=== PATIENT | male | born 2000 | race Caucasian/White ===

== ENCOUNTER 2018-01-22 19:03 | Emergency (ER) | payer OTHER ==
[2018-01-22 19:33] VITALS: BP 131/67
[2018-01-22] MEDS ORDERED: Clindamycin CAP* 150 MG PO ONE ×2 (19:45)
--- NOTE | 2018-01-22 19:45 | UC ---
Skin Complaint HPI - HPI Summary HPI Summary: 17-year-old male comes in with chief complaint of a rash around his mouth on his upper lip and his nose. Started about a week ago. Patient had been shaving and he cut his upper lip and the infection started at that point. He's been putting some triple antibiotic on it and it's not really helping. It's spread a little bit more into the opening of the nares on the right and across the upper lip. No fevers or chills no sore throat. - History of Current Complaint Chief Complaint: UCSkin Time Seen by Provider: 01/22/18 19:35 Stated Complaint: SORES FROM SHAVING Pain Intensity: 0 - Allergy/Home Medications Allergies/Adverse Reactions: Allergies Allergy/AdvReac Type Severity Reaction Status Date / Time No Known Allergies Allergy Verified 01/22/18 19:33 Review of Systems All Other Systems Reviewed And Are Negative: Yes Constitutional: Positive: Negative Skin: Positive: Rash Eyes: Positive: Negative ENT: Positive: Negative Respiratory: Positive: Negative Cardiovascular: Positive: Negative Gastrointestinal: Positive: Negative Motor: Positive: Negative Neurovascular: Positive: Negative Musculoskeletal: Positive: Negative Neurological: Positive: Negative Psychological: Positive: Negative Is Patient Immunocompromised?: No PMH/Surg Hx/FS Hx/Imm Hx Previously Healthy: Yes - Surgical History Surgical History: None - Family History Known Family History: Negative: Diabetes - Social History Alcohol Use: Rare Substance Use Type: None Smoking Status (MU): Never Smoked Tobacco Household Exposure Type: Cigarettes Physical Exam Triage Information Reviewed: Yes Appearance: Well-Appearing, No Pain Distress, Well-Nourished Vital Signs: Initial Vital Signs Temp 99.0 F 01/22/18 19:30 Pulse 88 01/22/18 19:30 Resp 18 01/22/18 19:30 BP 131/67 01/22/18 19:30 Pulse Ox 100 01/22/18 19:30 Vital Signs Reviewed: Yes Eye Exam: Normal Eyes: Positive: Conjunctiva Clear ENT: Positive: Pharynx normal. Negative: Pharyngeal erythema, Nasal congestion , Nasal drainage Neck exam: Normal Neck: Positive: Supple Respiratory: Positive: No respiratory distress Musculoskeletal Exam: Normal Musculoskeletal: Positive: Strength Intact, ROM Intact Neurological Exam: Normal Neurological: Positive: Alert, Muscle Tone Normal Psychological Exam: Normal Psychological: Positive: Age Appropriate Behavior Skin: Positive: Other - Patient has several areas under the nose on the upper lip 5 mm 10 mm in size that are erythematous with a yellow crusting on them. Course/Dx - Diagnoses Provider Diagnoses: IMPETIGO Discharge - Sign-Out/Discharge Documenting (check all that apply): Patient Departure All imaging exams completed and their final reports reviewed: No Studies - Discharge Plan Condition: Stable Disposition: HOME Prescriptions: Clindamycin Cap(NF) [Clindamycin Cap 300 mg Cap(NF)] 300 mg PO Q6H #39 cap Mupirocin 1 applic TOPICAL TID #22 gm Patient Education Materials: Impetigo (ED) Referrals: [facility] [Provider Group] Additional Instructions: FOLLOW UP WITH YOUR DOCTOR IF NOT COMPLETELY IMPROVED. GET RECHECKED FOR ANY WORSENING OF YOUR CONDITION OR QUESTIONS OR CONCERNS. - Billing Disposition and Condition Condition: STABLE Disposition: Home
[2018-01-22] MEDS ORDERED: Mupirocin 2% OINT* TUBE TOPICAL ONE (19:46)
== END 2018-01-22 20:04 | disposition home or self-care (01) ==
LOC: UCEAST 19:03
DX: L01.00 Impetigo, unspecified (principal)
CPT/HCPCS: 99212; A9270-GY; G0463